=== PATIENT | female | born 1955 | race Caucasian/White ===

== ENCOUNTER 2019-08-09 12:34 | Emergency (ER) | payer BC, MEDICARE ==
[~2019-08-09] VITALS: Ht 160 cm; Wt 59.5 kg
[2019-08-09 13:58] LABS: CLARITY,URINE CLEAR (Clear); COLOR,URINE STRAW (Yellow); GLUCOSE, URINE NEGATIVE (Neg); KETONES,URINE NEGATIVE (Neg); LEUKOCYTE ESTERASE ,URINE NEGATIVE (Neg); NITRITES, URINE NEGATIVE (Neg); OCCULT BLOOD,URINE TRACE-INTACT (Neg); PROTEIN,URINE NEGATIVE (Neg); UROBILINOGEN,URINE 0.2 E.U/dL (0.2-1.0)
[2019-08-09 14:00] LABS: BASOPHILS % (AUTO) 0.6 % (0-1); EOSINOPHILS # (AUTO) 0.1 X10'3 (0-0.9); EOSINOPHILS % (AUTO) 1.2 % (0-6); HEMOGLOBIN 13.9 g/dl (12.0-16.0); LYMPHOCYTES # (AUTO) 2.5 X10'3 (1.1-4.8); LYMPHOCYTES % (AUTO) 30.3 % (21-51); MEAN CORPUSCULAR HEMOGLOBIN 30.8 PG (27.0-31.0); MEAN CORPUSCULAR VOLUME 90.6 FL (78-98); MEAN PLATELET VOLUME 8.6 FL (7.4-10.4); MONOCYTES # (AUTO) 0.4 X10'3 (0-0.9); MONOCYTES % (AUTO) 5.4 % (2-12); NEUTROPHILS # (AUTO) 5.2 X10'3 (1.8-7.7); NEUTROPHILS % (AUTO) 62.5 % (42-75); PLATELET COUNT 258 X10'3 (140-440); RED BLOOD COUNT 4.53 X10'6 (4.20-5.60); RED CELL DISTRIBUTION WIDTH 13.1 % (11.5-14.5); WHITE BLOOD COUNT 8.4 X10'3 (4.5-11.0)
[2019-08-09 14:02] LABS: UA COLLECTION TYPE CLN CATCH MIDSTREAM
[2019-08-09 14:06] LABS: BACTERIA,URINE FEW /HPF (Neg); MUCUS STRANDS FEW /LPF (Neg); RBC,URINE 0-2 /HPF (0-2); SQUAMOUS EPITHELIAL CELL,UR FEW /LPF (FEW); WBC,URINE 0-4 /HPF (0-4)
[2019-08-09 14:10] LABS: ALANINE AMINOTRANSFERASE 36 U/L (12-78); ALBUMIN 3.7 G/DL (3.4-5.0); ALBUMIN/GLOBULIN RATIO 1.2 (1.1-1.5); ALKALINE PHOSPHATASE 69 IU/L (46-116); ANION GAP 8 (8-16); ASPARTATE AMINO TRANSFERASE 23 U/L (10-37); BILIRUBIN,TOTAL 0.4 MG/DL (0.1-1.0); BLOOD UREA NITROGEN 17 MG/DL (7-18); BUN/CREATININE RATIO 17.7 (6.6-38.0); CALCIUM 8.8 MG/DL (8.5-10.1); CHLORIDE 107 MMOL/L (99-107); CREATININE 0.96 MG/DL (0.40-0.90); GLUCOSE 101 MG/DL (70-104); POTASSIUM 3.9 MMOL/L (3.5-5.1); SODIUM 143 MMOL/L (135-145); TOTAL CARBON DIOXIDE 28.3 MMOL/L (24-32); TOTAL PROTEIN 6.8 G/DL (6.4-8.2); eGFR 59 ML/MIN
[2019-08-09] MEDS ORDERED: diphenhydrAMINE 50 mg/ml inj IM ONE (15:00)
[2019-08-09] MEDS ORDERED: metoclopramide 5 mg/ml inj IM ONE (15:00)
[2019-08-09] MEDS ORDERED: ketorolac trometh inj. 60 MG/2 ML VIAL IM ONE (15:00)
[2019-08-09 17:03] VITALS: BP 122/87
== END 2019-08-09 17:05 | disposition home or self-care (01) ==
LOC: ER 12:35
DX: R51 Headache (principal); R42 Dizziness and giddiness; Z88.0 Allergy status to penicillin; Z88.5 Allergy status to narcotic agent; Z88.8 Allergy status to other drugs, medicaments and biological substances
CPT/HCPCS: 36415; 70450; 80053; 81001; 85025; 93005; 96372; 99284; J1200; J1885; J2765

== ENCOUNTER 2020-04-04 03:36 | Emergency (ER) | payer BC, MEDICARE ==
[~2020-04-04] VITALS: Ht 160 cm; Wt 61.2 kg
--- NOTE | 2020-04-04 03:47 | NUR ---
Pacemaker/AICD interrogation initiated using [employer] device.
--- NOTE | 2020-04-04 03:51 | NUR ---
Primary report from interrogation received via fax and shows no recent events. MD reviewing report at this time.
[2020-04-04 03:54] LABS: BASOPHILS # (AUTO) 0.1 X10'3 (0-0.2); BASOPHILS % (AUTO) 0.8 % (0-1); EOSINOPHILS # (AUTO) 0.2 X10'3 (0-0.9); EOSINOPHILS % (AUTO) 2.1 % (0-6); HEMATOCRIT 43.1 % (35.0-45.0); HEMOGLOBIN 14.4 g/dl (12.0-16.0); LYMPHOCYTES # (AUTO) 4.2 X10'3 (1.1-4.8); LYMPHOCYTES % (AUTO) 45.8 % (21-51); MEAN CORPUSCULAR HEMOGLOBIN 30.2 PG (27.0-31.0); MEAN CORPUSCULAR HGB CONC 33.3 g/dL (33.0-36.5); MEAN CORPUSCULAR VOLUME 90.6 FL (78-98); MEAN PLATELET VOLUME 8.5 FL (7.4-10.4); MONOCYTES # (AUTO) 0.7 X10'3 (0-0.9); MONOCYTES % (AUTO) 7.3 % (2-12); PLATELET COUNT 259 X10'3 (140-440); RED BLOOD COUNT 4.75 X10'6 (4.20-5.60); RED CELL DISTRIBUTION WIDTH 13.2 % (11.5-14.5); WHITE BLOOD COUNT 9.1 X10'3 (4.5-11.0)
--- NOTE | 2020-04-04 04:03 | NUR ---
Receive call from Zhao Courtney from [employer] and he re-affirms that pacemaker interogation shows no recent abnormal activities. He also reports that device is functioning properly. made aware of report.
[2020-04-04 04:06] LABS: ALANINE AMINOTRANSFERASE 57 U/L (12-78); ALBUMIN 3.5 G/DL (3.4-5.0); ALBUMIN/GLOBULIN RATIO 1.1 (1.1-1.5); ALKALINE PHOSPHATASE 49 IU/L (46-116); ANION GAP 8 (8-16); ASPARTATE AMINO TRANSFERASE 37 U/L (10-37); BILIRUBIN,TOTAL 0.2 MG/DL (0.1-1.0); BLOOD UREA NITROGEN 11 MG/DL (7-18); BUN/CREATININE RATIO 11.5 (6.6-38.0); CALCIUM 8.7 MG/DL (8.5-10.1); CHLORIDE 105 MMOL/L (99-107); CREATININE 0.96 MG/DL (0.40-0.90); GLUCOSE 118 MG/DL (70-104); POTASSIUM 3.8 MMOL/L (3.5-5.1); SODIUM 142 MMOL/L (135-145); TOTAL CARBON DIOXIDE 28.9 MMOL/L (24-32); TOTAL PROTEIN 6.6 G/DL (6.4-8.2); eGFR 59 ML/MIN
[2020-04-04] MEDS ORDERED: normal saline 1000ML IV soln IVB ONE (05:05)
[2020-04-04 06:26] LABS: CLARITY,URINE CLEAR (Clear); COLOR,URINE YELLOW (Yellow); GLUCOSE, URINE NEGATIVE (Neg); KETONES,URINE NEGATIVE (Neg); LEUKOCYTE ESTERASE ,URINE NEGATIVE (Neg); NITRITES, URINE NEGATIVE (Neg); OCCULT BLOOD,URINE NEGATIVE (Neg); PROTEIN,URINE NEGATIVE (Neg); UROBILINOGEN,URINE 0.2 E.U/dL (0.2-1.0)
[2020-04-04 06:27] LABS: UA COLLECTION TYPE CLN CATCH MIDSTREAM
[2020-04-04 09:03] VITALS: BP 119/70
== END 2020-04-04 09:07 | disposition home or self-care (01) ==
LOC: ER 03:37
DX: R07.89 Other chest pain (principal); M25.512 Pain in left shoulder; Z95.0 Presence of cardiac pacemaker; Z88.0 Allergy status to penicillin; Z88.6 Allergy status to analgesic agent; Z88.5 Allergy status to narcotic agent; Z88.8 Allergy status to other drugs, medicaments and biological substances
CPT/HCPCS: 36415; 71045; 80053; 81003; 83880; 84484; 85025; 93005; 96360; 99285; J7030

== ENCOUNTER 2020-09-10 07:36 | Day surgery (SDC) | payer MEDICARE ==
[~2020-09-10] VITALS: Ht 160 cm; Wt 60.6 kg
[2020-09-10] VITALS (11 sets, daily range): BP systolic 114–126; BP diastolic 61–79
[2020-09-10] MEDS ORDERED: diphenhydrAMINE 25mg capsule PO PRN (08:00)
[2020-09-10] MEDS ORDERED: normal saline 1,000 ML IV SCH (08:00)
[2020-09-10] MEDS ORDERED: MAGN250T2 PO (08:17)
[2020-09-10] MEDS ORDERED: RIVA20TA PO (08:17)
[2020-09-10] MEDS ORDERED: ALIR75PE SUBCUT (08:17)
[2020-09-10] MEDS ORDERED: FLEC100T2 PO (08:17)
[2020-09-10] MEDS ORDERED: EST1T PO (08:17)
[2020-09-10 08:54] LABS: BASOPHILS # (AUTO) 0.1 X10'3 (0-0.2); BASOPHILS % (AUTO) 0.7 % (0-1); EOSINOPHILS # (AUTO) 0.1 X10'3 (0-0.9); EOSINOPHILS % (AUTO) 1.1 % (0-6); HEMATOCRIT 47.2 % (35.0-45.0); LYMPHOCYTES # (AUTO) 2.8 X10'3 (1.1-4.8); LYMPHOCYTES % (AUTO) 34.7 % (21-51); MEAN CORPUSCULAR HEMOGLOBIN 30.9 PG (27.0-31.0); MEAN CORPUSCULAR HGB CONC 33.9 g/dL (33.0-36.5); MEAN PLATELET VOLUME 8.3 FL (7.4-10.4); MONOCYTES # (AUTO) 0.3 X10'3 (0-0.9); MONOCYTES % (AUTO) 4.3 % (2-12); NEUTROPHILS # (AUTO) 4.9 X10'3 (1.8-7.7); NEUTROPHILS % (AUTO) 59.2 % (42-75); PLATELET COUNT 267 X10'3 (140-440); RED BLOOD COUNT 5.19 X10'6 (4.20-5.60); RED CELL DISTRIBUTION WIDTH 13.4 % (11.5-14.5); WHITE BLOOD COUNT 8.2 X10'3 (4.5-11.0)
[2020-09-10 09:13] LABS: ALBUMIN 4.3 G/DL (3.4-5.0); ANION GAP 10 (8-16); BLOOD UREA NITROGEN 14 MG/DL (7-18); BUN/CREATININE RATIO 17.7 (6.6-38.0); CALCIUM 9.3 MG/DL (8.5-10.1); CHLORIDE 103 MMOL/L (99-107); CREATININE 0.79 MG/DL (0.40-0.90); GLUCOSE 103 MG/DL (70-104); MAGNESIUM 2.4 MG/DL (1.5-2.4); POTASSIUM 3.9 MMOL/L (3.5-5.1); SODIUM 140 MMOL/L (135-145); TOTAL CARBON DIOXIDE 27.1 MMOL/L (24-32); eGFR 73 ML/MIN
[2020-09-10] MEDS ORDERED: LIDOcaine 1% (10mg/ml)w/preservative injection 20ml MDV ONE (10:33)
[2020-09-10] MEDS ORDERED: iohexol 350MG/ML 100ml bottle IV ONE ×3 (10:33→11:38)
[2020-09-10] MEDS ORDERED: fentaNYL/PF 50MCG/1 ML 2ML syringe ONE (10:33)
[2020-09-10] MEDS ORDERED: midazolam 2 mg/2 ml injection ONE ×3 (10:33→11:25)
[2020-09-10] MEDS ORDERED: iohexol 350 MG/ML 50ML vial IV ONE (10:33)
[2020-09-10] MEDS ORDERED: heparin 1,000unit/ml 10ml vial 10 ML ONE (11:14)
[2020-09-10] MEDS ORDERED: metoprolol tartrate 1mg/ml inj IV ONE ×2 (11:32→11:35)
[2020-09-10] MEDS ORDERED: ticagrelor 90mg tablet ONE (11:49)
[2020-09-10] MEDS ORDERED: ondansetron/PF 4mg/2ml inj IV PRN (12:25)
--- NOTE | 2020-09-10 15:00 | NUR ---
PT DRESSING SPOTTED WITH BLOOD, REMOVED TO REDRESS AND OBSERVE SITE. SMALL AMOUNT OF OOZING NOTED DROP APPROX 2MM ROUND. PRESSURE HELD. NEW DRSG PLACE, FEMSTOP PLACED FOR ADDED PRESSURE. PT JUAN MANUEL WELL
--- NOTE | 2020-09-10 16:00 | NUR ---
ANALY REMOVED, SPOUSE CALLED POSTPONED REED REPAIRER FOR [place] [facility]. SPOUSE STATES UNDERSTANDING. GHUL[place], CDI, SITE SOFT AND PALPABLE. Addendum: 09/10/20 at 1639 by Nicole Elizalde RN Amended: Links added.
== END 2020-09-10 16:55 | disposition home or self-care (01) ==
LOC: SSTAY O 07:36
PROVIDERS: ATTEND Internal Medicine Cardiovascular Disease
DX: I25.119 Atherosclerotic heart disease of native coronary artery with unspecified angina pectoris (principal); I47.2 Ventricular tachycardia; R07.9 Chest pain, unspecified; R06.02 Shortness of breath; I49.5 Sick sinus syndrome; R42 Dizziness and giddiness; I10 Essential (primary) hypertension; E78.5 Hyperlipidemia, unspecified; Z98.51 Tubal ligation status; Z98.890 Other specified postprocedural states; Z90.710 Acquired absence of both cervix and uterus; Z95.0 Presence of cardiac pacemaker; Z72.89 Other problems related to lifestyle; Z79.899 Other long term (current) drug therapy; Z88.0 Allergy status to penicillin; Z88.8 Allergy status to other drugs, medicaments and biological substances; Z80.1 Family history of malignant neoplasm of trachea, bronchus and lung; Z80.0 Family history of malignant neoplasm of digestive organs; Z82.49 Family history of ischemic heart disease and other diseases of the circulatory system; Z83.42 Family history of familial hypercholesterolemia
CPT/HCPCS: 36415; 80048; 83735; 85025; 85610; 92978; 93005; 93458; 99152; 99153; C1751; C1753; C1760; C1769; C1874; C1894; C9600; J1644; J2001; J2250; J3010; Q9967; A4620; A6258; J3490

== ENCOUNTER 2020-12-30 12:21 | Outpatient (CLI) | payer MEDICARE ==
[~2020-12-30 12:21] MED LIST: ALIR75PE SUBCUT; EST1T PO; FLEC100T2 PO; MAGN250T2 PO; RIVA20TA PO
[2020-12-30 12:58] LABS: ALBUMIN 3.8 G/DL (3.4-5.0); ANION GAP 7 (8-16); BLOOD UREA NITROGEN 14 MG/DL (7-18); BUN/CREATININE RATIO 18.7 (6.6-38.0); CALCIUM 8.9 MG/DL (8.5-10.1); CHLORIDE 106 MMOL/L (99-107); CREATININE 0.75 MG/DL (0.40-0.90); GLUCOSE 101 MG/DL (70-104); SODIUM 141 MMOL/L (135-145); eGFR 78 ML/MIN
[2020-12-30] MEDS ORDERED: GADOTERATE MEGLUMINE 7.5 MMOL/15 ML VIAL IV ONE (19:45)
== END 2020-12-30 23:59 | disposition home or self-care (01) ==
LOC: RAD 12:21
PROVIDERS: ATTEND Internal Medicine Cardiovascular Disease
DX: G31.9 Degenerative disease of nervous system, unspecified (principal); R42 Dizziness and giddiness; Z95.810 Presence of automatic (implantable) cardiac defibrillator
CPT/HCPCS: 36415; 70551; 80048; A9575

== ENCOUNTER 2021-02-22 16:56 | Emergency (ER) | payer MEDICARE ==
[~2021-02-22] VITALS: Ht 160 cm; Wt 62.5 kg
[2021-02-22 17:09] VITALS: BP 144/72
== END 2021-02-22 17:33 | disposition home or self-care (01) ==
LOC: ER 16:56
DX: S90.32XA Contusion of left foot, initial encounter (principal); I48.91 Unspecified atrial fibrillation; Z95.5 Presence of coronary angioplasty implant and graft; Z88.0 Allergy status to penicillin; Z88.8 Allergy status to other drugs, medicaments and biological substances; Z79.899 Other long term (current) drug therapy; D68.9 Coagulation defect, unspecified; Z79.01 Long term (current) use of anticoagulants; X58.XXXA Exposure to other specified factors, initial encounter; Y93.89 Activity, other specified; Y92.89 Other specified places as the place of occurrence of the external cause; Y99.8 Other external cause status
CPT/HCPCS: 99282

== ENCOUNTER 2021-06-04 06:15 | Day surgery (SDC) | payer MEDICARE ==
[~2021-06-04] VITALS: Ht 160 cm; Wt 57.9 kg
[2021-06-04] VITALS (10 sets, daily range): BP systolic 111–132; BP diastolic 63–92
[~2021-06-04 06:15] MED LIST changes: -ALIR75PE SUBCUT; +ALIR75PE5 SUBCUT
[2021-06-04] MEDS ORDERED: diphenhydrAMINE 25mg capsule PO PRN (06:35)
[2021-06-04] MEDS ORDERED: normal saline 1,000 ML IV SCH (06:35)
[2021-06-04 07:05] LABS: BASOPHILS # (AUTO) 0.1 X10'3 (0-0.2); BASOPHILS % (AUTO) 0.7 % (0-1); EOSINOPHILS # (AUTO) 0.1 X10'3 (0-0.9); EOSINOPHILS % (AUTO) 1.3 % (0-6); HEMATOCRIT 44.1 % (35.0-45.0); LYMPHOCYTES # (AUTO) 2.3 X10'3 (1.1-4.8); LYMPHOCYTES % (AUTO) 30.9 % (21-51); MEAN CORPUSCULAR HEMOGLOBIN 30.9 PG (27.0-31.0); MEAN CORPUSCULAR VOLUME 91.1 FL (78-98); MEAN PLATELET VOLUME 8.4 FL (7.4-10.4); MONOCYTES # (AUTO) 0.5 X10'3 (0-0.9); MONOCYTES % (AUTO) 6.8 % (2-12); NEUTROPHILS # (AUTO) 4.5 X10'3 (1.8-7.7); NEUTROPHILS % (AUTO) 60.3 % (42-75); PLATELET COUNT 247 X10'3 (140-440); RED BLOOD COUNT 4.85 X10'6 (4.20-5.60); RED CELL DISTRIBUTION WIDTH 13.2 % (11.5-14.5); WHITE BLOOD COUNT 7.4 X10'3 (4.5-11.0)
[2021-06-04 07:30] LABS: ALBUMIN 3.7 G/DL (3.4-5.0); ANION GAP 9 (8-16); BLOOD UREA NITROGEN 11 MG/DL (7-18); BUN/CREATININE RATIO 13.8 (6.6-38.0); CHLORIDE 108 MMOL/L (99-107); GLUCOSE 107 MG/DL (70-104); MAGNESIUM 2.3 MG/DL (1.5-2.4); POTASSIUM 3.9 MMOL/L (3.5-5.1); SODIUM 143 MMOL/L (135-145); TOTAL CARBON DIOXIDE 26.1 MMOL/L (24-32); eGFR 72 ML/MIN
[2021-06-04] MEDS ORDERED: iohexol 350 MG/ML 50ML vial IV ONE (08:51)
[2021-06-04] MEDS ORDERED: fentaNYL/PF 50MCG/1 ML 2ML syringe ONE (08:51)
[2021-06-04] MEDS ORDERED: midazolam 1 mg/ML 2ml injection ONE ×3 (08:51→09:40)
[2021-06-04] MEDS ORDERED: heparin 1,000unit/ml 10ml vial 10 ML ONE (08:51)
[2021-06-04] MEDS ORDERED: iohexol 350MG/ML 100ml bottle IV ONE (08:51)
[2021-06-04] MEDS ORDERED: LIDOcaine 1% (10mg/ml)w/preservative injection 20ml MDV ONE (08:55)
[2021-06-04] MEDS ORDERED: CLOP75TA15 PO (09:17)
[2021-06-04] MEDS ORDERED: HYDROcodone/acetaminophen 5mg/325mg tablet PO PRN (10:15)
[2021-06-04] MEDS ORDERED: proCHLORperazine 10 MG/2 ml inj IV PRN (10:15)
[2021-06-04] MEDS ORDERED: ondansetron/PF 4mg/2ml inj IV PRN (10:15)
[2021-06-04] MEDS ORDERED: HYDROcodone/acetaminophen 10/325mg tab PO PRN (10:15)
== END 2021-06-04 13:25 | disposition home or self-care (01) ==
LOC: SSTAY O 06:15
PROVIDERS: ATTEND Internal Medicine Cardiovascular Disease
DX: R94.39 Abnormal result of other cardiovascular function study (principal); I25.10 Atherosclerotic heart disease of native coronary artery without angina pectoris; I47.2 Ventricular tachycardia; Z95.5 Presence of coronary angioplasty implant and graft; Z95.810 Presence of automatic (implantable) cardiac defibrillator; Z79.01 Long term (current) use of anticoagulants; Z79.899 Other long term (current) drug therapy; Z98.51 Tubal ligation status; Z90.710 Acquired absence of both cervix and uterus; Z98.890 Other specified postprocedural states; Z72.89 Other problems related to lifestyle; Z88.0 Allergy status to penicillin; Z88.8 Allergy status to other drugs, medicaments and biological substances; Z86.73 Personal history of transient ischemic attack (TIA), and cerebral infarction without residual deficits; Z80.0 Family history of malignant neoplasm of digestive organs
CPT/HCPCS: 36415; 80048; 83735; 85025; 85610; 93005; 93458; 99152; 99153; C1760; C1769; C1894; J1644; J2001; J2250; J3010; J7030; Q0163; Q9967; A4620; A6258

== ENCOUNTER 2023-08-02 05:21 | Day surgery (SDC) | payer MEDICARE ==
[2023-08-02] VITALS (17 sets, daily range): BP systolic 66–131; BP diastolic 37–71; PULSE 70–82; RESP 8–16; TEMP 97.6; O2SAT 89–100
[~2023-08-02] VITALS: Ht 160 cm; Wt 61.7 kg
[~2023-08-02 05:21] MED LIST changes: -ALIR75PE5 SUBCUT; +CLOP75TA15 PO; -MAGN250T2 PO; +MAGN250T35 PO
[2023-08-02] MEDS ORDERED: sodium bicarbonate 1meq/ml syr 150 ML in dextrose 5%-water 1,000 ML IV SCH (05:45)
[2023-08-02] MEDS ORDERED: normal saline 1,000 ML IV SCH (05:50)
[2023-08-02] MEDS ORDERED: diphenhydrAMINE 25mg capsule PO PRN (05:50)
[2023-08-02 06:29] LABS: BASOPHILS # (AUTO) 0.1 X10'3 (0-0.2); BASOPHILS % (AUTO) 1.3 % (0-1); EOSINOPHILS # (AUTO) 0.2 X10'3 (0-0.9); EOSINOPHILS % (AUTO) 2.2 % (0-6); HEMATOCRIT 44.8 % (35.0-45.0); HEMOGLOBIN 15.2 g/dl (12.0-16.0); LYMPHOCYTES # (AUTO) 2.3 X10'3 (1.1-4.8); LYMPHOCYTES % (AUTO) 27.7 % (21-51); MEAN CORPUSCULAR HEMOGLOBIN 30.8 PG (27.0-31.0); MEAN CORPUSCULAR VOLUME 90.7 FL (78-98); MEAN PLATELET VOLUME 8.6 FL (7.4-10.4); MONOCYTES # (AUTO) 0.6 X10'3 (0-0.9); MONOCYTES % (AUTO) 7.6 % (2-12); NEUTROPHILS % (AUTO) 61.2 % (42-75); PLATELET COUNT 271 X10'3 (140-440); RED BLOOD COUNT 4.94 X10'6 (4.20-5.60); RED CELL DISTRIBUTION WIDTH 13.2 % (11.5-14.5); WHITE BLOOD COUNT 8.2 X10'3 (4.5-11.0)
[2023-08-02] MEDS ORDERED: ASPI-611 PO (06:34)
[2023-08-02] MEDS ORDERED: EVOL140S2 SUBCUT (06:34)
[2023-08-02] MEDS ORDERED: ASCO500C14 PO (06:34)
[2023-08-02] MEDS ORDERED: ROSU5TAB12 PO (06:34)
[2023-08-02] MEDS ORDERED: CHOL10008 PO (06:34)
[2023-08-02] MEDS ORDERED: ZINC25CA PO (06:34)
[2023-08-02 06:38] LABS: ALBUMIN 4.1 G/DL (3.4-5.0); ANION GAP 10 (8-16); BLOOD UREA NITROGEN 9 MG/DL (7-18); BUN/CREATININE RATIO 11.4 (10.0-20.0); CALCIUM 9.2 MG/DL (8.5-10.1); CHLORIDE 102 MMOL/L (99-107); CREATININE 0.79 MG/DL (0.40-0.90); GLUCOSE 107 MG/DL (70-104); MAGNESIUM 2.3 MG/DL (1.5-2.4); POTASSIUM 3.9 MMOL/L (3.5-5.1); SODIUM 139 MMOL/L (135-145); TOTAL CARBON DIOXIDE 27.5 MMOL/L (24-32); eCRCL 56 ML/MIN; eGFR 72 ML/MIN
[2023-08-02 06:47] LABS: APTT 33 SECONDS (22-32); PROTHROMBIN TIME 10.8 SECONDS (9.0-12.0)
[2023-08-02] MEDS ORDERED: verapamil 2.5 mg/ml inj IV ONE (07:40)
[2023-08-02] MEDS ORDERED: heparin 1,000unit/ml 10ml vial 10 ML ONE (07:40)
[2023-08-02] MEDS ORDERED: midazolam 1 mg/ML 2ml injection ONE (07:40)
[2023-08-02] MEDS ORDERED: LIDOcaine 1% (10mg/ml) 2ml vial ONE (07:40)
[2023-08-02] MEDS ORDERED: iohexol 350 MG/ML 50ML vial IV ONE ×2 (07:40→08:26)
[2023-08-02] MEDS ORDERED: fentaNYL/PF 50MCG/1 ML 2ML syringe ONE (07:40)
[2023-08-02] MEDS ORDERED: iohexol 350MG/ML 100ml bottle IV ONE (07:41)
[2023-08-02] MEDS ORDERED: nitroGLYCERIN 500mcg/5mL D5W 5 ML IV ONE ×2 (07:46)
[2023-08-02] MEDS ORDERED: LIDOcaine 1% (10mg/ml)w/preservative inj. 20ml MDV ONE (08:07)
[2023-08-02] MEDS ORDERED: proCHLORperazine 10 MG/2 ml inj IV PRN (09:30)
[2023-08-02] MEDS ORDERED: ondansetron/PF 4mg/2ml inj IV PRN (09:30)
== END 2023-08-02 14:40 | disposition home or self-care (01) ==
LOC: SSTAY O 05:21
PROVIDERS: ATTEND Internal Medicine Cardiovascular Disease
DX: R07.9 Chest pain, unspecified (principal); I25.10 Atherosclerotic heart disease of native coronary artery without angina pectoris; E78.00 Pure hypercholesterolemia, unspecified; Z86.73 Personal history of transient ischemic attack (TIA), and cerebral infarction without residual deficits; Z79.01 Long term (current) use of anticoagulants; Z79.82 Long term (current) use of aspirin; Z79.899 Other long term (current) drug therapy; Z98.51 Tubal ligation status; Z98.891 History of uterine scar from previous surgery; Z95.5 Presence of coronary angioplasty implant and graft; Z95.0 Presence of cardiac pacemaker; Z98.890 Other specified postprocedural states; Z88.0 Allergy status to penicillin; Z88.8 Allergy status to other drugs, medicaments and biological substances; Z80.0 Family history of malignant neoplasm of digestive organs; Z80.1 Family history of malignant neoplasm of trachea, bronchus and lung; Z82.49 Family history of ischemic heart disease and other diseases of the circulatory system
CPT/HCPCS: 36415; 80048; 83735; 85025; 85610; 85730; 93005; 93458; 99152; 99153; J1644; J2250; J2405; J3010; J3490; J7030; J7070; Q0163; Q9967; A6258; A6449; C1760; C1894

== ENCOUNTER 2024-01-27 03:17 | Emergency (ER) | payer MEDICARE ==
[~2024-01-27] VITALS: Ht 160 cm; Wt 60.0 kg
[~2024-01-27 03:17] MED LIST changes: +ASCO500C14 PO; +ASPI-611 PO; +CHOL10008 PO; -CLOP75TA15 PO; +EVOL140S2 SUBCUT; +ROSU5TAB12 PO; +ZINC25CA PO
[2024-01-27 04:34] VITALS: BP 151/82; PULSE 70; RESP 16; TEMP 98.2; O2SAT 97
== END 2024-01-27 04:26 | disposition home or self-care (01) ==
LOC: ER 03:17
DX: H61.21 Impacted cerumen, right ear (principal); Z88.0 Allergy status to penicillin; Z88.8 Allergy status to other drugs, medicaments and biological substances; Z79.82 Long term (current) use of aspirin; Z79.899 Other long term (current) drug therapy; Z95.0 Presence of cardiac pacemaker
CPT/HCPCS: 69209; 99282

== ENCOUNTER 2024-05-20 13:02 | Emergency (ER) | payer MEDICARE ==
[~2024-05-20] VITALS: Ht 160 cm; Wt 61.6 kg
[~2024-05-20 13:02] MED LIST changes: -ROSU5TAB12 PO; +ROSU5TAB43 PO
[2024-05-20 13:17] VITALS: TEMP 98.9
[2024-05-20 14:08] LABS: BASOPHILS % (AUTO) 0.1 % (0-1); EOSINOPHILS % (AUTO) 0.3 % (0-6); HEMATOCRIT 44.7 % (35.0-45.0); LYMPHOCYTES # (AUTO) 0.8 X10'3 (1.1-4.8); LYMPHOCYTES % (AUTO) 6.4 % (21-51); MEAN CORPUSCULAR HGB CONC 33.7 g/dL (33.0-36.5); MEAN PLATELET VOLUME 8.2 FL (7.4-10.4); MONOCYTES # (AUTO) 0.4 X10'3 (0-0.9); NEUTROPHILS # (AUTO) 11.5 X10'3 (1.8-7.7); NEUTROPHILS % (AUTO) 90.2 % (42-75); PLATELET COUNT 218 X10'3 (140-440); RED BLOOD COUNT 4.86 X10'6 (4.20-5.60); RED CELL DISTRIBUTION WIDTH 13.6 % (11.5-14.5); WHITE BLOOD COUNT 12.7 X10'3 (4.5-11.0)
[2024-05-20 14:24] LABS: BILIRUBIN,URINE NEGATIVE (Neg); CLARITY,URINE CLOUDY (Clear); COLOR,URINE YELLOW (Yellow); GLUCOSE, URINE NEGATIVE (Neg); KETONES,URINE 40 mg/dl (Neg); LEUKOCYTE ESTERASE ,URINE NEGATIVE (Neg); NITRITES, URINE NEGATIVE (Neg); OCCULT BLOOD,URINE NEGATIVE (Neg); PROTEIN,URINE NEGATIVE (Neg); UROBILINOGEN,URINE 0.2 E.U/dL (0.2-1.0)
[2024-05-20 14:27] LABS: ALANINE AMINOTRANSFERASE 28 U/L (12-78); ALBUMIN 3.7 G/DL (3.4-5.0); ALBUMIN/GLOBULIN RATIO 1.1 (1.1-1.5); ALKALINE PHOSPHATASE 55 IU/L (46-116); ANION GAP 6 (8-16); ASPARTATE AMINO TRANSFERASE 26 U/L (10-37); BILIRUBIN,TOTAL 1.1 MG/DL (0.1-1.0); BLOOD UREA NITROGEN 13 MG/DL (7-18); BUN/CREATININE RATIO 15.9 (10.0-20.0); CALCIUM 8.8 MG/DL (8.5-10.1); CHLORIDE 107 MMOL/L (99-107); CREATININE 0.82 MG/DL (0.40-0.90); GLUCOSE 112 MG/DL (70-104); LIPASE 26 U/L (16-77); POTASSIUM 4.4 MMOL/L (3.5-5.1); SODIUM 141 MMOL/L (135-145); TOTAL CARBON DIOXIDE 27.6 MMOL/L (24-32); TOTAL PROTEIN 7.1 G/DL (6.4-8.2); eCRCL 54 ML/MIN; eGFR 69 ML/MIN
[2024-05-20 14:46] LABS: UA COLLECTION TYPE NON-SPECIFIED
[2024-05-20 14:49] LABS: SQUAMOUS EPITHELIAL CELL,UR MODERATE /LPF (FEW)
[2024-05-20 14:50] LABS: BACTERIA,URINE FEW /HPF (Neg); MUCUS STRANDS FEW /LPF (Neg)
[2024-05-20 14:51] LABS: RBC,URINE 0-2 /HPF (0-2); WBC,URINE 0-4 /HPF (0-4)
[2024-05-20] MEDS: glycopyrrolate 0.2mg/ml inj IV ONE (15:07)
[2024-05-20] MEDS: normal saline 1000ML IV soln IVB ONE (15:08)
[2024-05-20] MEDS: ondansetron/PF 4mg/2ml inj IV ONE (15:08)
[2024-05-20] MEDS ORDERED: iohexol 300mg/ml 100ml inj. ONE (15:41)
[2024-05-20] MEDS: morphine 4 MG/ML inj SYRINge IV ONE (16:46)
[2024-05-20] MEDS: CefTRIAXone 2gm/D5W 50ml BAG 50 ML IV ONE (17:11)
[2024-05-20] MEDS ORDERED: LEVO-65 PO (17:35)
[2024-05-20] MEDS ORDERED: DICY10CA88 PO (17:35)
[2024-05-20] MEDS ORDERED: METR-159 PO (17:35)
[2024-05-20] MEDS ORDERED: ONDA-243 PO (17:35)
[2024-05-20] MEDS: dicyclomine 10 MG capsule PO STA (18:27)
[2024-05-20 18:32] VITALS: BP 108/55; PULSE 70; RESP 18; O2SAT 97
== END 2024-05-20 18:33 | disposition home or self-care (01) ==
LOC: ER 13:04
DX: R10.32 Left lower quadrant pain (principal); R11.2 Nausea with vomiting, unspecified; Z88.0 Allergy status to penicillin; Z88.6 Allergy status to analgesic agent; Z88.5 Allergy status to narcotic agent; Z79.899 Other long term (current) drug therapy; Z79.82 Long term (current) use of aspirin; Z95.0 Presence of cardiac pacemaker
CPT/HCPCS: 36415; 74176; 80053; 81001; 83690; 84145; 85025; 96361; 96365; 96375; 99285; A6402; C1758; J0696; J2270; J2405; J3490; J7030; A6449; Q9967

== ENCOUNTER 2024-08-23 08:42 | Day surgery (SDC) | payer MEDICARE ==
[2024-08-23] VITALS (13 sets, daily range): BP systolic 116–180; BP diastolic 72–98; PULSE 70–79; RESP 12–17; TEMP 98.2; O2SAT 94–97
[~2024-08-23] VITALS: Ht 160 cm; Wt 62.8 kg
[~2024-08-23 08:42] MED LIST changes: +ONDA-243 PO; -ROSU5TAB43 PO; +ROSU5TAB51 PO
[2024-08-23] MEDS ORDERED: CLOP-32 PO (09:30)
[2024-08-23] MEDS ORDERED: PANT20TA18 PO (09:30)
[2024-08-23 09:40] LABS: BASOPHILS # (AUTO) 0.1 X10'3 (0-0.2); BASOPHILS % (AUTO) 0.7 % (0-1); EOSINOPHILS # (AUTO) 0.1 X10'3 (0-0.9); EOSINOPHILS % (AUTO) 1.3 % (0-6); HEMOGLOBIN 15.2 g/dl (12.0-16.0); LYMPHOCYTES # (AUTO) 2.2 X10'3 (1.1-4.8); LYMPHOCYTES % (AUTO) 29.5 % (21-51); MEAN CORPUSCULAR HEMOGLOBIN 30.5 PG (27.0-31.0); MEAN CORPUSCULAR HGB CONC 33.9 g/dL (33.0-36.5); MEAN CORPUSCULAR VOLUME 90.1 FL (78-98); MEAN PLATELET VOLUME 8.3 FL (7.4-10.4); MONOCYTES # (AUTO) 0.5 X10'3 (0-0.9); MONOCYTES % (AUTO) 6.2 % (2-12); NEUTROPHILS # (AUTO) 4.7 X10'3 (1.8-7.7); NEUTROPHILS % (AUTO) 62.3 % (42-75); PLATELET COUNT 247 X10'3 (140-440); RED BLOOD COUNT 4.99 X10'6 (4.20-5.60); RED CELL DISTRIBUTION WIDTH 13.3 % (11.5-14.5); WHITE BLOOD COUNT 7.5 X10'3 (4.5-11.0)
[2024-08-23 09:51] LABS: PROTHROMBIN TIME 10.3 SECONDS (9.0-12.0)
[2024-08-23 10:17] LABS: ALBUMIN 4.2 G/DL (3.4-5.0); ANION GAP 5 (8-16); BLOOD UREA NITROGEN 10 MG/DL (7-18); BUN/CREATININE RATIO 11.9 (10.0-20.0); CALCIUM 9.3 MG/DL (8.5-10.1); CHLORIDE 105 MMOL/L (99-107); CREATININE 0.84 MG/DL (0.40-0.90); GLUCOSE 108 MG/DL (70-104); MAGNESIUM 2.2 MG/DL (1.5-2.4); POTASSIUM 3.7 MMOL/L (3.5-5.1); SODIUM 140 MMOL/L (135-145); TOTAL CARBON DIOXIDE 29.9 MMOL/L (24-32); eCRCL 52 ML/MIN; eGFR 67 ML/MIN
[2024-08-23] MEDS ORDERED: midazolam 1 mg/ML 2ml injection ONE ×3 (10:47→13:03)
[2024-08-23] MEDS ORDERED: verapamil 2.5 mg/ml inj IV ONE (10:47)
[2024-08-23] MEDS ORDERED: iohexol 350 MG/ML 50ML vial IV ONE (10:47)
[2024-08-23] MEDS ORDERED: heparin 1,000unit/ml 10ml vial 10 ML ONE (10:47)
[2024-08-23] MEDS ORDERED: fentaNYL/PF 50MCG/1 ML 2ML syringe ONE (10:47)
[2024-08-23] MEDS ORDERED: iohexol 350MG/ML 100ml bottle IV ONE ×2 (10:47→12:46)
[2024-08-23] MEDS ORDERED: LIDOcaine 1% (10mg/ml) 2ml vial ONE (10:50)
[2024-08-23] MEDS: sodium bicarbonate 1meq/ml inj 150 ML in dextrose 5%-water 1,000 ML IV SCH (10:51)
[2024-08-23] MEDS: normal saline 1000ml 1,000 ML IV SCH (10:52)
[2024-08-23] MEDS: diphenhydrAMINE 25mg capsule PO PRN (10:52)
[2024-08-23] MEDS ORDERED: nitroGLYCERIN 500mcg/5mL D5W 5 ML IV ONE (10:58)
[2024-08-23] MEDS ORDERED: LIDOcaine 1% 30ml preserv. free vial ONE (11:50)
[2024-08-23] MEDS ORDERED: clopidogrel 300mg tablet ONE (13:14)
[2024-08-23] MEDS: acetaminophen 325mg tablet PO PRN (14:00)
[2024-08-23] MEDS ORDERED: ondansetron/PF 4mg/2ml inj IV PRN (14:10)
[2024-08-23] MEDS ORDERED: proCHLORperazine 10 MG/2 ml inj IV PRN (14:10)
== END 2024-08-23 16:30 | disposition home or self-care (01) ==
LOC: SSTAY O 08:42
PROVIDERS: ATTEND Internal Medicine Cardiovascular Disease
DX: R07.9 Chest pain, unspecified (principal); I25.110 Atherosclerotic heart disease of native coronary artery with unstable angina pectoris; I48.0 Paroxysmal atrial fibrillation; Z98.51 Tubal ligation status; I49.5 Sick sinus syndrome; E78.5 Hyperlipidemia, unspecified; Z87.891 Personal history of nicotine dependence; Z98.890 Other specified postprocedural states; Z79.899 Other long term (current) drug therapy; Z88.0 Allergy status to penicillin; Z95.5 Presence of coronary angioplasty implant and graft; Z85.01 Personal history of malignant neoplasm of esophagus; I44.4 Left anterior fascicular block; Z99.2 Dependence on renal dialysis
CPT/HCPCS: 36415; 71046; 76700; 80048; 83735; 85025; 85610; 93005; 93458; 99152; 99153; C1725; C1751; C1760; C1769; C1874; C1894; C9600; J1644; J2003; J2250; J3010; J3490; J7030; J7070; Q0163; Q9967; Z7610

== ENCOUNTER 2024-08-24 15:22 | Emergency (ER) | payer MEDICARE ==
[~2024-08-24] VITALS: Ht 160 cm; Wt 65.5 kg
[~2024-08-24 15:22] MED LIST changes: -ASPI-611 PO; +CLOP-32 PO; +PANT20TA18 PO
[2024-08-24 16:51] LABS: BASOPHILS % (AUTO) 0.5 % (0-1); EOSINOPHILS # (AUTO) 0.1 X10'3 (0-0.9); EOSINOPHILS % (AUTO) 1.3 % (0-6); HEMATOCRIT 42.8 % (35.0-45.0); HEMOGLOBIN 14.5 g/dl (12.0-16.0); LYMPHOCYTES # (AUTO) 1.9 X10'3 (1.1-4.8); LYMPHOCYTES % (AUTO) 25.7 % (21-51); MEAN CORPUSCULAR HEMOGLOBIN 30.5 PG (27.0-31.0); MEAN CORPUSCULAR HGB CONC 33.9 g/dL (33.0-36.5); MEAN CORPUSCULAR VOLUME 90.1 FL (78-98); MEAN PLATELET VOLUME 7.9 FL (7.4-10.4); MONOCYTES # (AUTO) 0.6 X10'3 (0-0.9); MONOCYTES % (AUTO) 8.6 % (2-12); NEUTROPHILS # (AUTO) 4.7 X10'3 (1.8-7.7); NEUTROPHILS % (AUTO) 63.9 % (42-75); PLATELET COUNT 243 X10'3 (140-440); RED BLOOD COUNT 4.75 X10'6 (4.20-5.60); RED CELL DISTRIBUTION WIDTH 13.4 % (11.5-14.5); WHITE BLOOD COUNT 7.4 X10'3 (4.5-11.0)
[2024-08-24 17:11] LABS: PRO BRAIN NATRIURETIC PEPTIDE 207 PG/ML (0-125)
[2024-08-24 20:21] VITALS: TEMP 98.4
[2024-08-24 21:04] VITALS: BP 124/79; PULSE 70; RESP 12; O2SAT 96
== END 2024-08-24 21:07 | disposition home or self-care (01) ==
LOC: ER 15:23
DX: R07.89 Other chest pain (principal); Z88.0 Allergy status to penicillin; Z88.5 Allergy status to narcotic agent; Z95.0 Presence of cardiac pacemaker; Z79.899 Other long term (current) drug therapy
CPT/HCPCS: 36415; 71045; 83880; 84484; 85025; 93005; 99285